=== PATIENT | female | born 1985 | race Caucasian/White ===

== ENCOUNTER → 2019-11-09 | Outpatient (CLI) | payer OTHER, BC | END | disposition home or self-care (01) | LOC: RAD 15:06 → EDSTATUS 15:30 | PROVIDERS: ATTEND Physician Assistant | DX: R22.1 Localized swelling, mass and lump, neck (principal) | CPT/HCPCS: 76536 ==

== ENCOUNTER 2019-11-19 14:29 | Outpatient (CLI) | payer BC, OTHER ==
[2019-11-19] MEDS ORDERED: OMNIPAQUE 350 MG/ML, 100ML BOTTLE ONE (15:00)
== END 2019-11-19 23:59 | disposition home or self-care (01) ==
LOC: CFH 14:29
PROVIDERS: ATTEND Physician Assistant
DX: R22.1 Localized swelling, mass and lump, neck (principal)
CPT/HCPCS: 70491; Q9967

== ENCOUNTER → 2019-12-27 | Outpatient (CLI) | payer BC ==
[~2019-12-27] MED LIST: LIDOCAINE 1%, 10ML ONE
== END | disposition home or self-care (01) ==
LOC: RAD 12:45
PROVIDERS: ATTEND Surgery
DX: Q89.2 Congenital malformations of other endocrine glands (principal)
CPT/HCPCS: 76942; 88112; J3490